=== PATIENT | female | born 1995 | race Caucasian/White ===

== ENCOUNTER 2019-01-30 16:42 | Emergency (ER) | payer OTHER ==
[~2019-01-30] VITALS: Ht 167.6 cm; Wt 101.8 kg
[2019-01-30] MEDS ORDERED: [UNRECOGNIZED DRUG - REMARK] (16:50)
[2019-01-30 17:26] LABS: BASO % 0.2 % (0.0-1.0); EOS % 0.2 % (0.0-3.0); HEMATOCRIT 38.9 % (36.0-47.0); HEMOGLOBIN 12.7 g/dl (12.0-15.5); LYMPH # 1.6 10^3/uL (1.5-5.0); LYMPH % 14.4 % (24.0-44.0); MEAN CORPUSCULAR HEMOGLOBIN 28.6 pg (27.0-33.0); MEAN CORPUSCULAR HGB CONC 32.6 g/dl (32.0-36.5); MEAN CORPUSCULAR VOLUME 87.6 fl (80.0-96.0); MONO # 0.4 10^3/uL (0.0-0.8); MONO % 3.1 % (0.0-5.0); NEUTROPHILS # 9.3 10^3/uL (1.5-8.5); NEUTROPHILS % 81.7 % (36.0-66.0); PLATELET COUNT, AUTOMATED 244 10^3/uL (150-450); RED BLOOD COUNT 4.44 10^6/uL (4.00-5.40); WHITE BLOOD COUNT 11.3 10^3/uL (4.0-10.0)
[2019-01-30 17:48] LABS: ALBUMIN 3.1 GM/DL (3.2-5.2); ALT/SGPT 14 U/L (12-78); BILIRUBIN,DIRECT < 0.1 MG/DL (0.0-0.2); BILIRUBIN,TOTAL 0.2 MG/DL (0.2-1.0); BLOOD UREA NITROGEN 7 MG/DL (7-18); CALCIUM LEVEL 8.8 MG/DL (8.5-10.1); CARBON DIOXIDE LEVEL 26 MEQ/L (21-32); CHLORIDE LEVEL 105 MEQ/L (98-107); CREATININE FOR GFR 0.68 MG/DL (0.55-1.30); GLOMERULAR FILTRATION RATE > 60.0 (>60); GLUCOSE, FASTING 108 MG/DL (70-100); LIPASE 66 U/L (73-393); POTASSIUM SERUM 3.5 MEQ/L (3.5-5.1); SODIUM LEVEL 140 MEQ/L (136-145); TOTAL PROTEIN 7.5 GM/DL (6.4-8.2)
[2019-01-30] MEDS ORDERED: ONDANSETRON 4 MG ORAL DISINTEGRATING TAB (Q0162 PER 1MG) PO ONE (19:30)
[2019-01-30] MEDS ORDERED: AZITHROMYCIN 250 MG TAB PO ONE (19:30)
--- NOTE | 2019-01-30 20:04 | REPVR ---
PROCEDURE INFORMATION: Exam: US , Limited Exam date and time: 01/30/2019 6:55 PM Clinical history: 23 years old, female; complicated by abdominal or pelvic pain; Lower; Second trimester; Gestational age or lmp: 15w3d; ; Additional info: Nathan pelvic pain TECHNIQUE: Imaging protocol: Real-time ultrasound of the maternal uterus with image documentation. Exam focused on the clinical indication. COMPARISON: No relevant prior studies available. FINDINGS: GESTATION: Gestation: Intrauterine gestation. Heart rate: heart rate 152 beats per minute. Presentation: Oblique breech presentation with head to maternal left position. Placenta: Posterior fundal placenta. Amniotic fluid: Adequate amniotic fluid. Umbilical cord and insertion: Nuchal cord not ruled out. BIOMETRY: Estimated gestational age: Clinical gestational age 15 weeks and 3 days. Estimated due date: Clinical estimated due date of 07/21/2019. MATERNAL: Other findings: Anatomic survey not performed or clustered, no gross abnormality seen. IMPRESSION: No acute abnormality. Electronically signed by: Jefry Ribera On 01/30/2019 20:04:46 PM
[2019-01-30 20:50] VITALS: BP 124/69
== END 2019-01-30 21:02 | disposition home or self-care (01) ==
LOC: M ED 16:42
DX: O98.319 Other infections with a predominantly sexual mode of transmission complicating pregnancy, unspecified trimester (principal); A74.9 Chlamydial infection, unspecified; T36.95XA Adverse effect of unspecified systemic antibiotic, initial encounter; Z3A.15 15 weeks gestation of pregnancy; Z87.59 Personal history of other complications of pregnancy, childbirth and the puerperium
CPT/HCPCS: 36415; 76815; 80048; 80076; 81001; 83690; 85025; 87086; 99284; Q0162

== ENCOUNTER 2019-02-15 20:13 | Emergency (ER) | payer OTHER ==
[~2019-02-15] VITALS: Ht 167.6 cm; Wt 102.6 kg
[~2019-02-15 20:13] MED LIST: [UNRECOGNIZED DRUG - REMARK]
[2019-02-15 21:43] LABS: BASO % 0.1 % (0.0-1.0); EOS # 0.1 10^3/uL (0.0-0.5); EOS % 0.8 % (0.0-3.0); HEMATOCRIT 36.8 % (36.0-47.0); HEMOGLOBIN 11.6 g/dl (12.0-15.5); LYMPH # 2.9 10^3/uL (1.5-5.0); LYMPH % 20.3 % (24.0-44.0); MEAN CORPUSCULAR HEMOGLOBIN 28.4 pg (27.0-33.0); MEAN CORPUSCULAR HGB CONC 31.5 g/dl (32.0-36.5); MONO # 0.9 10^3/uL (0.0-0.8); MONO % 6.6 % (0.0-5.0); NEUTROPHILS # 10.3 10^3/uL (1.5-8.5); NEUTROPHILS % 71.8 % (36.0-66.0); PLATELET COUNT, AUTOMATED 228 10^3/uL (150-450); RED BLOOD COUNT 4.09 10^6/uL (4.00-5.40); WHITE BLOOD COUNT 14.3 10^3/uL (4.0-10.0)
--- NOTE | 2019-02-15 22:32 | REPVR ---
PROCEDURE INFORMATION: Exam: US , Limited Exam date and time: 02/15/2019 9:57 PM Age: 24 years old Clinical history: complicated by abdominal or pelvic pain; Lower; Second trimester; Gestational age or lmp: 18; ; Additional info: Abd cramping 15 weeks TECHNIQUE: Imaging protocol: Real-time ultrasound of the maternal uterus with image documentation. Exam focused on the clinical indication. COMPARISON: US OB 01/30/2019 6:46 PM FINDINGS: GESTATION: Gestation: anatomic measurements not obtained. Heart rate: rate 158 beats per minute. Presentation: Single intrauterine gestation in transverse presentation. Placenta: Placenta posterior right lateral, without demonstrated abruption. Amniotic fluid: Amniotic fluid subjectively within normal limits. MATERNAL: Cervix: Cervix closed, 3.4 cm in length. IMPRESSION: Single viable intrauterine gestation without demonstrated complication. Electronically signed by: Marc Dickson On 02/15/2019 22:32:45 PM
[2019-02-15] MEDS ORDERED: FLAG500T PO (22:38)
[2019-02-15 22:53] VITALS: BP 129/60
[2019-02-16] LABS: CHLAMYDIA DNA AMPLIFICATION NEGATIVE (NEGATIVE); GC DNA AMPLIFICATION NEGATIVE (NEGATIVE)
== END 2019-02-15 23:12 | disposition home or self-care (01) ==
LOC: M ED 20:13
DX: O23.599 Infection of other part of genital tract in pregnancy, unspecified trimester (principal); O98.319 Other infections with a predominantly sexual mode of transmission complicating pregnancy, unspecified trimester; A74.9 Chlamydial infection, unspecified; Z3A.18 18 weeks gestation of pregnancy; Z80.41 Family history of malignant neoplasm of ovary; Z87.59 Personal history of other complications of pregnancy, childbirth and the puerperium

== ENCOUNTER → 2019-12-18 | Outpatient (CLI) | payer OTHER ==
[~2019-12-18] MED LIST changes: +FLAG500T PO
[2019-12-18 17:42] LABS: HEMOGLOBIN A1c 5.7 %
[2019-12-18 17:48] LABS: BLOOD UREA NITROGEN 12 MG/DL (7-18); CALCIUM LEVEL 8.9 MG/DL (8.5-10.1); CARBON DIOXIDE LEVEL 28 MEQ/L (21-32); CHLORIDE LEVEL 106 MEQ/L (98-107); CREATININE FOR GFR 0.92 MG/DL (0.55-1.30); GLOMERULAR FILTRATION RATE > 60.0 (>60); GLUCOSE, FASTING 99 MG/DL (70-100); POTASSIUM SERUM 4.1 MEQ/L (3.5-5.1); SODIUM LEVEL 139 MEQ/L (136-145)
[2019-12-18 17:49] LABS: ALBUMIN 3.5 GM/DL (3.2-5.2); ALT/SGPT 36 U/L (12-78); BILIRUBIN,TOTAL 0.2 MG/DL (0.2-1.0); CHOLESTEROL LEVEL 158 MG/DL (<200); CHOLESTEROL RISK RATIO 3.291 (<5); FERRITIN 7 NG/ML (8-252); FREE T4 0.91 NG/DL (0.76-1.46); HDL CHOLESTEROL 48 MG/DL (>40); IRON (FE) 21 UG/DL (50-170); LDL CHOLESTEROL 75 MG/DL (<100); NON-HDL-C 110 MG/DL; PERCENT SATURATION 4.7 % (13.2-45.0); TOTAL IRON BINDING CAPACITY 445 UG/DL (250-450); TOTAL PROTEIN 7.8 GM/DL (6.4-8.2); TRIGLYCERIDES LEVEL 174 MG/DL (<150)
[2019-12-18 17:50] LABS: TOTAL 25(OH) VITAMIN D 13.7 NG/ML (30.0-100.0)
[2019-12-18 17:56] LABS: BASO % 0.3 % (0.0-1.0); EOS # 0.2 10^3/uL (0.0-0.5); EOS % 1.7 % (0.0-3.0); HEMATOCRIT 38.2 % (36.0-47.0); HEMOGLOBIN 10.9 g/dl (12.0-15.5); LYMPH # 3.4 10^3/uL (1.5-5.0); LYMPH % 24.9 % (24.0-44.0); MEAN CORPUSCULAR HEMOGLOBIN 22.4 pg (27.0-33.0); MEAN CORPUSCULAR HGB CONC 28.5 g/dl (32.0-36.5); MEAN CORPUSCULAR VOLUME 78.6 fl (80.0-96.0); MONO # 1.1 10^3/uL (0.0-0.8); MONO % 7.7 % (0.0-5.0); NEUTROPHILS # 8.9 10^3/uL (1.5-8.5); NEUTROPHILS % 65.1 % (36.0-66.0); PLATELET COUNT, AUTOMATED 418 10^3/uL (150-450); RED BLOOD COUNT 4.86 10^6/uL (4.00-5.40); WHITE BLOOD COUNT 13.7 10^3/uL (4.0-10.0)
== END ==
LOC: M LAB 15:40
PROVIDERS: ATTEND Physician Assistant
DX: D50.9 Iron deficiency anemia, unspecified (principal); Z13.29 Encounter for screening for other suspected endocrine disorder